=== PATIENT | female | born 1990 | race Caucasian/White ===

== ENCOUNTER 2019-12-02 21:56 | Emergency (ER) | payer BC, SELFPAY ==
[2019-12-02 22:07] VITALS: BP 133/65; PULSE 74; RESP 18; TEMP 36.9; O2SAT 98; BMI 47.2
--- NOTE | 2019-12-02 22:15 | XR_ITS ---
PROCEDURE: XR TOE RT MIN 2V CLINICAL INDICATION: stubbed little toe on couch Pain COMPARISON: No exams were available for comparison FINDINGS: Nondisplaced transverse fracture involves the proximal aspect of the proximal phalanx of the 5th toe IMPRESSION: Fracture proximal phalanx 5th toe Dictated by: Lazaro Blackman MD 12/03/2019 06:38 Electronically signed by Lazaro Blackman MD in [place] 12/03/2019 06:38
--- NOTE | 2019-12-02 22:30 | [facility].EDGENADL ---
ED Disposition Clinical Impression: Toe fracture, right Qualifiers: Encounter type: initial encounter Toe: lesser toe Fracture type: closed Phalanx: proximal Fracture alignment: nondisplaced Qualified Code(s): S92.514A - Nondisplaced fracture of proximal phalanx of right lesser toe(s), initial encounter for closed fracture Disposition: Home, Self-Care Condition on Discharge: Good Instructions: How to Use Crutches, How to Daniel Tape, DI for Toe Fracture Additional Instructions: Take daily. Crutches for 4 to 5 days until comfortable bearing weight. Postop shoe. Ibuprofen for pain. Ice and elevation for swelling and pain. Follow-up with orthopedics within 1 week. Prescriptions: Ibuprofen [Ibuprofen 800mg Tab] 800 mg PO Q8HP PRN #20 tab PRN Reason: Moderate Pain Prescription Printed Referrals: Mario Alberto Zambrano MD [Primary Care Provider] - Forms: Work/School Release - Critical Care Critical Care Time: No Attestation: On 12/02/19, the high probability of a clinically significant, sudden or life threatening deterioration of the following system(s) required my full and direct attention, intervention and personal management. The time I documented below is in addition to time spent performing reported procedures but includes the following listed in this critical care notation. Medical Decision Making - James Inquiry Pt receiving controlled substance: No Vital Signs: 12/02/19 22:07 Temperature 98.4 F Temperature Source Oral Pulse Rate [Right] 74 Respiratory Rate 18 Blood Pressure [Right Arm] 133/65 Blood Pressure Mean [Right Arm] 87 Blood Pressure Source [Right Arm] Automatic Cuff Blood Pressure Position [Right Arm] Sitting 02 Sat by Pulse Oximetry 98 Oxygen Delivery Method Room Air Orders (Tests/Meds): ORDERS Category Date Time Status XR toe RT min 2V Stat Exams 12/02/19 22:15 Taken - Radiology Data #1 Image(s): Foot/Toes Image Reviewed: Yes I reviewed the patient's radiology image Nondisplaced transverse fracture proximal metaphysis of proximal phalanx. General Adult HPI - General Chief complaint: Extremity Injury, Lower Stated complaint: AO [id number] @1300 injury to R pinky toe Time Seen by Provider: 12/02/19 22:30 Mode of Arrival: Wheelchair Limitations: No Limitations Description of Symptoms (Recalled from ER Triage Doc. by RN): Pt states she stubbed her right little toe on the couch about 1300 today - History of Present Illness HPI narrative: Injured right small toe earlier today when she stubbed it on a couch. Complains of bruising, swelling, tingling of her toes. States she is on Vivitrol, cannot receive opioids. Requests anti-inflammatories. - Related Data Previous Rx's Medication Instructions Recorded Ibuprofen [Ibuprofen 800mg Tab] 800 mg PO Q8HP PRN #20 tab 12/02/19 Allergies Allergy/AdvReac Type Severity Reaction Status Date / Time Penicillins [PENICILLINS] Allergy Intermediate Unverified 06/09/17 14:52 [facility] History - Hepatitis A Screen Drug use history?: Yes High risk sexual behaviors?: No History of sexually transmitted infection?: No Currently employed?: No Childcare worker?: No Do you have indoor plumbing?: Yes Do you have electricity?: Yes Attestation statement:: This patient has been screened for Hepatitis A risk factors. I have reviewed the patient's past medical history: Yes - Social History Alcohol Intake: former Substance Use Type: crack/cocaine Occupational Status: employed ROS Obtained: Yes Systems reviewed as appropriate & no additional complaints - Musculoskeletal Musculoskeletal: Reports as per HPI - Neurologic Neurologic: Denies numbness, Denies weakness Physical Exam - General General appearance: alert, in no apparent distress - Respiratory Respiratory exam: Absent: respiratory distress - Cardiovascular Cardiovascular exam: Present: regular rate - Extremities Exam Extremities exam: Present: ishaan
[2019-12-02 23:22] VITALS: BP 129/61; PULSE 71; RESP 16; TEMP 36.8; O2SAT 98
== END 2019-12-02 23:24 | disposition home or self-care (01) ==
PROVIDERS: Emergency Provider Emergency Medicine; PCP Family Medicine
DX: S92.514A Nondisplaced fracture of proximal phalanx of right lesser toe(s), initial encounter for closed fracture (principal); W22.03XA Walked into furniture, initial encounter; Y92.019 Unspecified place in single-family (private) house as the place of occurrence of the external cause; Z88.0 Allergy status to penicillin
CPT/HCPCS: 73660; 96372; 99282